=== PATIENT | female | born 1975 | race Caucasian/White ===

== ENCOUNTER 2017-04-01 13:57 | Emergency (ER) | payer OTHER ==
[~2017-04-01] VITALS: Ht 162.6 cm; Wt 82.1 kg
[~2017-04-01 13:57] MED LIST: AMOX1TAB12 PO; CATAFLAM50 MG PO; CIPRO HC OTIC S10 ML OT; CODEINE; LEVAQUIN750 MG PO; TYLENOL
[2017-04-01] MEDS ORDERED: CIPRO100 MG (14:45)
[2017-04-01] MEDS ORDERED: TUSSIONEX PENN115 ML (14:46)
[2017-04-01] MEDS ORDERED: TUSSI PRES-B L120 M1 PO (18:36)
[2017-04-01] MEDS ORDERED: LEVAQUIN750 MG PO (18:36)
[2017-04-01] MEDS ORDERED: MEDROLPACK PO (18:36)
== END 2017-04-01 19:14 | disposition home or self-care (01) ==
LOC: ER 13:57
DX: B34.9 Viral infection, unspecified (principal)

== ENCOUNTER 2018-03-16 13:12 | Outpatient (CLI) | payer OTHER ==
[~2018-03-16 13:12] MED LIST changes: +CIPRO100 MG; +MEDROLPACK PO; +TUSSI PRES-B L120 M1 PO; +TUSSIONEX PENN115 ML
== END 2018-03-16 13:18 | disposition home or self-care (01) ==
LOC: SONOGRAMA 13:12
DX: N63.22 Unspecified lump in the left breast, upper inner quadrant (principal); N60.11 Diffuse cystic mastopathy of right breast; N60.12 Diffuse cystic mastopathy of left breast

== ENCOUNTER 2018-06-04 14:16 | Emergency (ER) | payer OTHER ==
[~2018-06-04] VITALS: Ht 160 cm; Wt 73.0 kg
== END 2018-06-04 21:19 | disposition home or self-care (01) ==
LOC: ER 14:16
DX: M79.18 Myalgia, other site (principal)

== ENCOUNTER 2018-08-14 11:50 | Emergency (ER) | payer OTHER ==
[~2018-08-14] VITALS: Ht 160 cm; Wt 77.1 kg
[2018-08-14] MEDS ORDERED: LEVOTHYROXINE25 MCG (12:49)
== END 2018-08-14 15:40 | disposition home or self-care (01) ==
LOC: ER 11:50
DX: R00.2 Palpitations (principal); F06.4 Anxiety disorder due to known physiological condition